=== PATIENT | male | born 1940 | race Caucasian/White ===

== ENCOUNTER 2017-12-22 10:42 | Inpatient (IN) ==
[~2017-12-22 10:42] MED LIST: Bupivacaine/Epinephrine 0.5% Inj 50 ML Vial ONE; Gelatin Size 100 Topical Foam ONE; Thrombin Topical Soln 5,000 UNIT Vial TOPICAL ONE; ceFAZolin 2 GM Premix Inj 0 GM/0 ML PIGGYBACK IV.SIG ONE
[2017-12-22] MEDS ORDERED: Phenylephrine/NS 1000 MCG/10ML Syringe IV.PUSH ONE (12:00)
[2017-12-22] MEDS ORDERED: Chlorhexidine Gluconate 2% 1 Pack (2 Cloths) TOPICAL SCH (12:00)
[2017-12-22] MEDS ORDERED: Lidocaine PF 1% Inj 5 ML Syringe INFILTRATN ONE (12:00)
[2017-12-22] MEDS ORDERED: Metoprolol Tartrate 25 MG Tablet PO SCH (12:15)
--- NOTE | 2017-12-22 12:31 | XR ---
EXAM DATE: 12/22/2017 12:21 PM EDT AGE/SEX: 77 years / Male INDICATIONS: Evaluate for pneumonia, pneumothorax and communicable diseases. Pre-op back surgery CLINICAL DATA: This is the patient's initial encounter. Patient reports that signs and symptoms have been present for 1 day and indicates a pain score of 0/10. MEDICAL/SURGICAL HISTORY: . Afib None. COMPARISON: No prior exams available for comparison. FINDINGS: A single AP view of the chest demonstrates the lungs to be symmetrically aerated without evidence of mass, infiltrate or effusion. Focal eventration of the left hemidiaphragm. Heart size is normal. Oss eous structures are intact with significant widening of the left AC joint. CONCLUSION: 1. No acute cardiopulmonary process. 2. Widening of the left AC joint. Findings are nonspecific but can be related to prior injury or chr onic joint stress Electronically signed by: Barry Schaffer MD 12/22/2017 12:30 PM EDT
[2017-12-22 13:00] LABS: Prothrombin Time 10.6 sec (9.8-11.6)
[2017-12-22] MEDS ORDERED: Sodium Chlor 0.9% Inj 500 ML IV.SIG SCH (13:00)
[2017-12-22] MEDS ORDERED: Propofol Inj 500 MG/50 ML Vial ONE (14:27)
[2017-12-22] MEDS ORDERED: Artificial Tears Opth Oint 3.5 GM Tube ONE (14:27)
[2017-12-22] MEDS ORDERED: Bisacodyl 10 MG Supp RECTAL PRN (15:30)
[2017-12-22] MEDS ORDERED: HYDROmorphone PCA Inj 6 MG/30 ML PCA.VIAL PCA PRN (15:35)
[2017-12-22] MEDS ORDERED: Naloxone Inj 0.4 MG/ML Vial IV.PUSH PRN (15:35)
[2017-12-22] MEDS ORDERED: ceFAZolin 2 GM Premix Inj 2 GM/50 ML PIGGYBACK IV.SIG SCH (16:00)
--- NOTE | 2017-12-22 17:13 | ECG ---
Date Performed: 12/22/2017 Time Performed: 11:49:07 PTAGE: 77 years EKG: Sinus rhythm LOW QRS VOLTAGE IN PRECORDIAL LEADS INCOMPLETE RIGHT BUNDLE BRANCH BLOCK LEFT ANTERIOR FASCICULAR BL OCK ABNORMAL ECG PREVIOUS TRACING : 02/25/2010 12.47 Since the previous tracing, no significant change noted DOCTOR: Mike Esteves Interpretating Date/Time 12/22/2017 17:12:35
--- NOTE | 2017-12-22 17:58 | P.OP ---
Date of procedure: 12/22/17 Procedure: L4-L5 laminectomy, interbody arthrodhesis using PEEK cage and autologous bone graft, L4-L5 instrumental fixation using transpedicular screws and rods, L4-L5 posterolateral fusion using autologous bone graft and demineralized bone matrix. Microsurgical dissection Anesthesia: ERMELINDA Surgeon: Doug Barclay MD Script Worker: Aby Gardiner Estimated blood loss (mL): 200 Pathology: none sent Operation and Findings: INDICATIONS FOR THE SURGICAL PROCEDURE Mr Petersen is a 77 year-old male who presented with intractable mechanical back pain and david evidence of lower extremity radiculopathy. He failed maximum nonsurgical management including multiple modalities of conservative treatment as well as pain management interventions by an interventional pain specialist. A surgical decompression and arthrodhesis were indicated as a last resort. The [id number] details of the procedure, indications, alternatives, risks and potential complications were fully discussed with the patient. The patient fully understood. All the questions were answered. No guarantees were given. The patient voiced requesting the procedure and provided informed consents. The patient was offered the alternative of delaying the procedure and continuing with nonsurgical management. DETAILS OF THE SURGICAL PROCEDURE Prior to the procedure, the surgical incision was marked in the preoperative surgical holding room, and the procedure, risks, and potential complications revisited with the patient. Placement of electrodes for intraoperative neurophysiological monitoring was completed. The patient was taken to the operative room, and following induction of general anesthesia, endotracheal intubation was performed. A Almonte catheter, bilateral QUINTON hose and sequential compression devices were placed and kept throughout the procedure. The patient was positioned prone, over a Brett table over a bolsters. All pressure in the preoperative surgical holding room points were carefully padded with eggcrate and gel mattress. The eyes were tapped shut after ointment was applied by the anesthesiologist to prevent corneal abrasion. A Jean-Pierre hugger was placed over the expossed lower body to maintain control of the core body temperature. The electrophysiological team placed the needles and electrodes in their proper location and baseline SSEP's and EMG potentials were registered. The entrance to each pedicles was marked using a C arm. The lumbar region was prepped and draped in the usual sterile fashion. The surgical procedure was performed in several steps as follow: SURGICAL APPROACH Once the patient was positioned, a localizing cross-table lateral x-ray was performed with a C-arm. Two paramedian small incisions were outlined on the skin approximately 3cm from the midline. The skin incisions were made with a # 10 blade. Small bleeders were controlled with the cautery. The dissection was then carried out into deper planes and through the thoracolumbar fascia with a Bovie. The intermuscular septum was identified and the myscles were blunted dissected along the septum. The facets and transverse process of L4 and L5 were exposed and the proper anatomical landmarks were identified. A microsurgical self-retaining retractor was placed on the incision, and a localizing lateralizing cross-table x-ray was performed with an instrument underneath a lamina of the lumbar spine. INSTRUMENTAL FIXATION At this point in the procedure, placement of bilateral transpedicular screws was necessary for stabilization of the spine. Initially, the entry point for the screw was selected anatomically at the junction of the facet, with the transverse process, and the pars interarticularis at L4 and L5. This was started with a Giamshetti needle followed by the use of a horner wire. A tap was used to create the threads for the screws. Finally bilateral transpedicular screws were carefully placed bilaterally at L4, and L5 under fluoroscopic visualization. An appropriate purchase was achieved with all screws. The position of each screw was assessed anatomically with an AP, lateral , oblique Xrays. An intraoperative scan view of the spine was then performed using the iso-centric c-arm. Each screw was then assessed electrophysiologically stimulating each screw with a nerve stimulator. SURGICAL DECOMPRESSION There was significant mass effect with compression of the neural structures. In order to relieve neural compression, it was necessary to perform a decompressive laminectomy, with decompression of the spinal canal and bilateral lateral recesses. Note that the scope of such decompression was significantly more extensive than the minimal exposure necessary to perform an interbody fusion, as there was extreme facet arthropathy with near complete collapse of the disk spaces and severe stenosis cause by the hyperthrophic joint facets. At this point of the procedure the operative microscope was draped in the usual sterile fashion and brought to the field. The rest of the surgical procedure was performed using microdissection technique with the exception of the closure. Under the operating microscope, a right decompressive laminectomy was carried out at L4-L5 as follow: The laminae, base of the spinous processes and facets were carefully drilled exposing the ligamentum flavum. The facets were abnormal with severe spondylolisthesis and gross mechanical instability. A large disk protusion was compressing the neural structures and exiting nerve roots. A near complete facetectomy was necessary resulting in further mechanical instability. The ligamentum flavum appeared hypertrophic, resulting on mass effect on the dorsal surface of the neural structures. The superior free border of the ligamentum flavum was elevated with a ligament dissector and the ligamentum flavum was removed with a 3 and 4 mm Kerrison forceps. The ligament was very adherent to the dural sac and during the dissection, and extreme care was taken during the dissection. The exiting nerve roots were identified, and a wide foraminotomy was performed with a Kerrison in their trajectory towards the neural foramen. Epidural veins located laterally to the dural sac were coagulated with the bipolar cautery, and then incised using microscissors. Gentle medial retraction of the dural sac allowed me to expose the disc space for the discectomy. Upon completion of the discectomy, an excellent decompression of the neural structures was achieved. Increased motion was noted thorough the procedure, which was consistent with mechanical instability. INTERBODY ARTHRODHESIS In order to correct the narrowing of the disk space and maintain distraction of the space, and to achieve a solid interbody fusion, it was necessary the insertion of an interbody device into the disk space. Otherwise, the disk space would collapse, compromising the result of the surgical procedure. At this point of the procedure, the annulus fibrosus of the disk was carefully coagulated with a bipolar cautery and incised using an 11 bladed knife. Then, a microdiscectomy was carried out in a standard fashion using a combination of straight and up-biting pituitary forceps. A reverse angle curette was applied underneath the posterior longitudinal ligament, and used to push the disk fragments into the disk space, so they can be safely removed with a pituitary forceps. Once the discectomy was completed, it was necessary to decorticate the endplates, in order to eliminate the cartilaginous endplate and to expose healthy bone appropriate to perform the interbody fusion. The endplates at L4- L5 were then thoroughly decorticated using increasing size bone tomasz and ring curets, eliminating the cartilaginous fragments from both, the superior and inferior endplates. A disk space distractor was applied to the pedicle screws and gentle distraction was applied. This maneuver was assisted by the use of a disk distractor. Increased motility was noted at the disk, which was consistent with instability due to facet arthropathy. Once a thorough preparation of the disk space was achieved, the disk space was irrigated with antibiotic solution, and the interbody fusion was performed by carefully impacting a PPEK cage filled with autologous iliac crest bone graft. A solid position of the cage with good purchase was achieved. The position of the cage was assessed anatomically with a probe and radiologically with the C-arm. POSTEROLATERAL FUSION The posterolateral fusion is a critical component to the procedure, to prevent future fatigue and failure of the instrumental fixation. Initially, the transverse processes of the vertebral bodies, lateral surface of the facets and the lateral gutters of the spine were carefully cleaned, eliminating all soft tissue and muscle attachments. The area was then irrigated with a large amount of antibiotic solution. Subsequently, the transverse processes, lateral surface of the facets, and lateral gutters of the spine were thoroughly decorticated using the TPS drill with a 5mm cutting sriram, exposing cancellous bone, in preparation for the posterolateral fusion. The incision was again irrigated with antibiotic solution. Then, the posterolateral fusion was then performed by carefully packing the lateral gutters of the spine at L4-L5 with autologous bone combined with demineralized bone matrix. I packed as much bone as possible. COMPLETION OF THE INSTRUMENTATION AND CLOSURE The rods were brought to the field, applied to all the screws, and the screw caps were sequentially applied. Compression was performed between the pedicle screws, and final tightening of the screws was completed using a torque wrench. The incision was again thoroughly irrigated with several liters of antibiotic solution, and hemostasis secured with the bipolar cautery. A Valsalva Maneuver performed by the anesthesiologist failed to show any evidence of cerebrospinal fluid leak or bleeding. A 7 mm Brett-Ribera drain was left in the epidural space and externalized through a separate stab incision. The incision was then closed in planes. 0 Vicryl was used in an interrupted fashion to close the thoracolumbar fascia and the superficial fascia. The subcutaneous tissue was then approximated using 3-0 Vicryl in an interrupted fashion. Special care was taken to avoid space. The skin was then closed with 4-0 Vicryl in a running, subcuticular fashion. Dermabond was applied to the skin. Each plane of closure was irrigated with antibiotic solution. At the end of the procedure the sponge, needle and instrument counts were all correct. Estimated blood loss was 200 cc. No blood transfusion was given. The entire procedure was performed using continuous electrophysiological monitoring of the somatosensorial evoked potentials and EMG. The patient received prophylactic antibiotics. The patient was then extubated and transferred to the recovery room in stable condition.
[2017-12-22] MEDS ORDERED: fentaNYL Citrate Inj 100 MCG/2 ML Ampul ONE (18:25)
[2017-12-22] MEDS: Sod Chloride 0.9% Inj 1,000 ML IV.CONT SCH (18:50)
[2017-12-22 19:12] LABS: Hematocrit 42.7 % (39.0-51.0); Hemoglobin 14.3 gm/dL (13.0-17.0); Mean Corpuscular HGB Conc 33.6 % (32.0-36.0); Mean Corpuscular Hemoglobin 29.5 pg (27.0-34.0); Mean Corpuscular Volume 87.7 fL (80.0-100.0); Mean Platelet Volume 9.3 fL (7.0-11.0); Platelet Count 174 th/mm3 (150-450); Red Blood Count 4.87 mil/mm3 (4.50-5.90); Red Cell Distribution Width 13.4 % (11.6-17.2)
[2017-12-22 19:24] LABS: Calcium 8.7 mg/dL (8.5-10.1); Carbon Dioxide 23.7 meq/L (21.0-32.0); Potassium 4.1 meq/L (3.5-5.1)
--- NOTE | 2017-12-22 19:32 | XR ---
EXAM DATE: 12/22/2017 6:20 PM EDT AGE/SEX: 77 years / Male INDICATIONS: Fusion L4,L5 with screws and rods placement. CLINICAL DATA: This is the patient's subsequent encounter. Patient reports that signs and symptoms h ave been present for 1 day and indicates a pain score of Nonresponsive. MEDICAL/SURGICAL HISTORY: Non-responsive. Non-responsive. COMPARISON: No prior exams available for comparison. FINDINGS: Surgical changes of discectomy and fusion procedure with posterior and interbody instrumentation seen at L4/L5. Alignment is near-anatomic. There is moderate L4/L5 disc space narrowing CONCLUSION: No acute abnormality/complication demonstrated status post discectomy and fusion at L4/L5. Electronically signed by: Eliseo Bassett MD 12/22/2017 7:30 PM EDT
[2017-12-22] MEDS: Senna/Docusate Sodium 8.6/50 MG Tablet PO SCH (22:24)
[2017-12-22] MEDS: Dorzolamide 2% Opth Drops 10 ML Bottle EACH EYE SCH (22:24)
[2017-12-22] MEDS: Brimonidine 0.2% Opth Drops 5 ML Bottle EACH EYE SCH (22:24)
[2017-12-23] MEDS ORDERED: Vancomycin Inj 1 GM/200 ML PIGGYBACK IV.SIG SCH (03:00)
[2017-12-23] MEDS: prednisoLONE Acetate 1% Opth Susp 5 ML Bottle EACH EYE SCH ×3 (09:44→19:35)
[2017-12-23] MEDS: Brimonidine 0.2% Opth Drops 5 ML Bottle EACH EYE SCH (09:45)
[2017-12-23] MEDS: Dorzolamide 2% Opth Drops 10 ML Bottle EACH EYE SCH (09:45)
[2017-12-23] MEDS: Senna/Docusate Sodium 8.6/50 MG Tablet PO SCH (09:47)
[2017-12-23] MEDS: Sod Chloride 0.9% Inj 1,000 ML IV.CONT SCH ×2 (09:49→19:39)
--- NOTE | 2017-12-23 11:57 | P.CONIM ---
History of Present Illness Consult date: 12/23/17 Requesting Physician: Doug Barclay Reason for Consult: Medical management Primary Care Provider: Neha Pratt History of Present Illness: Mr. Petersen is a 77 y/o male with CAD, hx of NH, hx of A. fib s/p ablation with Dr. Lerma, Hyperlipidemia, GERD, chronic back pain. [place] [facility] and underwent L4-L5 laminectomy and fusion with hardware placement with Dr. Barclay. The [facility] Hospitalist team was consulted to help with medical management. The pt is seen on POD #1 and is doing well. He is sitting in the chair with his brace on and reports that his pain is well controlled. His vitals are stable. Pt plans to go home with [facility] at the time of discharge. Pt denies any abd pain, chest pain, SOB, palpitations, dizziness, weakness, nausea/ vomiting. Review of Systems All other systems reviewed negative except as stated in HPI PMFSH - History History Provided By: Patient, Family Member - Medical History Medical History: Medical History (Last Updated 12/23/17 @ 11:22 by SERENA Lebron) Arthritis (Acute) Glaucoma (Acute) Personal history of poliomyelitis (Acute) Asthma (Chronic) GERD (gastroesophageal reflux disease) (Acute) Inguinal hernia (Acute) A-fib (Acute) CAD (coronary artery disease) COPD (chronic obstructive pulmonary disease) Inflammatory polyarthritis - Surgical History Surgical History: Surgical History (Last Updated 12/22/17 @ 22:40 by John Shin RN) Hx of cataract surgery (Acute) H/O umbilical hernia repair (Acute) H/O foot surgery (Acute) Hx of tonsillectomy (Acute) Status post left shoulder hemiarthroplasty (Acute) H/O cardiac radiofrequency ablation (Acute) - Family History Family History: Family History (Last Updated 12/23/17 @ 11:42 by SERENA Lebron) Other Family history non-contributory - Tobacco History Second Hand Smoke Exposure: No Tobacco Use In Past 30 Days: No Smoking Status: Never smoker Tobacco Type: Cigarettes - Alcohol History How Often Do You Have a Drink Containing Alcohol: Monthly or less - Substance Use History Substance History: No History of Abuse Medications and Allergies Allergies Allergy/AdvReac Type Severity Reaction Status Date / Time aspirin Allergy Severe Anaphylaxis Verified 12/22/17 12:10 penicillin G Allergy Severe Anaphylaxis Verified 12/22/17 12:10 Home Medications Medication Instructions Recorded Confirmed Type albuterol sulfate [Ventolin HFA] 2 puff INHALATION Q4-6H PRN 12/18/17 12/22/17 History brimonidine 1 drp OPHTHALMIC (EYE) BID 12/18/17 12/22/17 History clopidogrel [Plavix] 75 mg PO DAILY 12/18/17 12/18/17 History dorzolamide 1 drp OPHTHALMIC (EYE) BID 12/18/17 12/22/17 History fluticasone-vilanterol [Breo 1 inh INHALATION DAILY 12/18/17 12/22/17 History Ellipta] latanoprost 1 drp OPHTHALMIC (EYE) QPM 12/18/17 12/22/17 History prednisolone acetate 1 drp OPHTHALMIC (EYE) TID 12/18/17 12/22/17 History atorvastatin 20 mg PO DAILY 12/23/17 12/23/17 History Active Medications: Active Medications Al Hydroxide/Mg Hydroxide (Milk Of Tekorajose raul Maynard) 30 ml PO Q12H PRN PRN Reason: Mild Constipation Albuterol (Ventolin Hfa Inh) 2 puff INH Q4H PRN PRN Reason: SHORTNESS OF BREATH Bisacodyl (Dulcolax Supp) 10 mg RECTAL DAILY PRN PRN Reason: SEVERE CONSITIPATION Brimonidine Tartrate (Alphagan 0.2% Opth Drops) 1 drops EACH EYE BID [facility] Last Admin: 12/23/17 09:45 Dose: 1 drops Chlorhexidine Gluconate (Chlorhexidine 2% Cloth) 3 pack TOPICAL SALES OPERATIONS COORDINATOR [facility] Stop: 12/25/17 12:00 Last Admin: 12/22/17 12:00 Dose: 3 pack Clopidogrel Bisulfate (Plavix) 75 mg PO DAILY [facility] Last Admin: 12/23/17 09:47 Dose: 75 mg Dorzolamide HCl (Trusopt 2% Opth Drops) 1 drop EACH EYE BID [facility] Last Admin: 12/23/17 09:45 Dose: 1 drop Fluticasone/Vilanterol (Breo Ellipta 100/25 Mcg Inh) 1 puff INH DAILY [facility] Last Admin: 12/23/17 09:48 Dose: 1 puff Lactated Ringer's (Lr 1000 Ml Inj) 1,000 mls @ 30 mls/hr IV.SIG .Q24H [facility] Stop: 12/25/17 12:06 Last Infusion: 12/22/17 15:00 Dose: Infused Sodium Chloride (Ns Inj) 500 mls @ 30 mls/hr IV.SIG .Q10H [facility] Stop: 12/25/17 12:06 Sodium Chloride (Ns Inj) 1,000 mls @ 100 mls/hr IV.CONT .Q10H [facility] Last Admin: 12/23/17 09:49 Dose: 100 mls/hr Hydromorphone/Sodium Chloride (Dilaudid Real Estate Associate Attorney Inj) 6 mg in 30 mls @ 0 mls/hr SERVICE DESK ANALYST UNSCH PRN PRN Reason: per SERVICE DESK ANALYST parameters Last Admin: 12/22/17 18:50 Dose: 0 mls/hr Vancomycin HCl 1,000 mg/ (Sodium Chloride) 250 mls @ 200 mls/hr IV.SIG Q12H [facility] Stop: 12/23/17 16:14 Lactulose (Lactulose Liq) 30 ml PO DAILY PRN PRN Reason: SEVERE CONSITIPATION Latanoprost (Xalatan 0.005% Opth Drops) 1 drop EACH EYE QPM [facility] Metoprolol Tartrate (Lopressor) 25 mg PO SALES OPERATIONS COORDINATOR [facility] Stop: 12/25/17 12:06 Miscellaneous Information ([facility]) 1 each OTHER UNSCH PRN PRN Reason: SEE LABEL COMMENTS Stop: 12/23/17 18:19 Naloxone HCl (Narcan Inj) 0.4 mg IV.PUSH PRN PRN PRN Reason: SEE LABEL COMMENTS Povidone Iodine (Betadine 5% Antisepsis Kit) 1 applicatio EACH NARE SALES OPERATIONS COORDINATOR [facility] Stop: 12/25/17 12:06 Prednisolone Acetate (Pred Forte 1% Opth Susp) 1 drop EACH EYE TID [facility] Last Admin: 12/23/17 09:44 Dose: 1 drop Senna/Docusate Sodium (Florinda-Colace) 1 tab PO BID [facility] Last Admin: 12/23/17 09:47 Dose: 1 tab Sennosides (Senokot) 17.2 mg PO Q12H PRN PRN Reason: Moderate Constipation Exam Vital signs: Vital Signs 12/22/17 12:24 12/22/17 18:19 07/10/18 18:30 Temperature 97.2 F L 97.4 F L Pulse Rate 62 93 H 86 Respiratory Rate 16 12 13 Blood Pressure 133/80 122/65 132/67 Pulse Oximetry 99 12/22/17 18:45 12/22/17 18:57 12/22/17 19:00 Temperature 97.4 F L Pulse Rate 84 93 H 82 Respiratory Rate 16 12 12 Blood Pressure 147/72 H 122/65 161/68 H Pulse Oximetry 98 12/22/17 19:15 12/22/17 19:30 12/22/17 19:40 Temperature Pulse Rate 79 80 82 Respiratory Rate 12 11 L 15 Blood Pressure 150/76 H 130/69 137/70 Pulse Oximetry 12/22/17 19:45 12/22/17 20:00 12/23/17 00:00 Temperature 97.6 F 97.8 F 97.7 F Pulse Rate 81 86 Respiratory Rate 17 16 Blood Pressure 142/76 H 108/57 L Pulse Oximetry 95 95 12/23/17 02:30 12/23/17 04:40 12/23/17 08:00 Temperature 98.1 F 98.1 F Pulse Rate 77 68 Respiratory Rate 15 16 17 Blood Pressure 125/63 117/60 Pulse Oximetry 95 95 Intake & Output 12/22/17 12/23/17 12/23/17 18:59 06:59 18:59 Intake Total 1999 / 1999 1480 / 1480 Output Total 500 / 500 1100 / 1100 Balance 1500 / 1500 380 / 380 Weight 81.6 kg Intake: IV 1000 / 1000 1000 / 1000 NS Inj 1,000 ML @ 100 mls/hr IV 1000 / 1000 .CONT .Q10H [facility] Rx#:[id number] LR 1000 mL Inj 1,000 ML @ 30 1000 / 1000 mls/hr IV.SIG .Q24H [facility] Rx#: [id number] Oral 480 / 480 Anesthesia Amount 1000 / 1000 Output: Urine 900 / 900 Estimated Blood Loss 200 / 200 Urine Amount (Catheter) 300 / 300 200 / 200 Indwelling Urethral Catheter 200 / 200 URE 300 / 300 Wound Drainage 0 / 0 # 1 Back 0 / 0 Other: # Bowel Movements 0 Weight On Admission 81.6 kg Narrative: GENERAL: SKIN: Warm and dry. HEENT: Atraumatic. Normocephalic. No scleral icterus. No injection or drainage. No nasal bleeding or discharge. Mucous membranes pink and moist. NECK: Trachea midline. No JVD. CARDIOVASCULAR: Regular rate and rhythm. RESPIRATORY: No accessory muscle use. Clear to auscultation. Breath sounds equal bilaterally. GASTROINTESTINAL: Abdomen soft, non-tender, nondistended. Hepatic and splenic margins not palpable. MUSCULOSKELETAL: Extremities without clubbing, cyanosis, or edema. No obvious deformities. NEUROLOGICAL: Awake and alert. No obvious cranial nerve deficits. Motor grossly within normal limits. Five out of 5 muscle strength in the arms and legs. Normal speech. Results - Labs CBC & Chem 7: 12/24/17 04:25 12/24/17 04:25 Labs: Laboratory Results - last 24 hr 12/22/17 12/22/17 12/22/17 12:09 12:09 12:09 WBC RBC Hgb Hct MCV MCH MCHC RDW Plt Count MPV PT 10.6 INR 1.0 APTT 24.7 Sodium Potassium Chloride Carbon Dioxide Anion Gap BUN Creatinine Estimated GFR Random Glucose Calcium Nasal Screen MRSA (PCR) Not detected Blood Type Blood Type Recheck Antibody Screen 12/22/17 12/22/17 12/22/17 12:09 18:58 18:58 WBC 10.0 RBC 4.87 Hgb 14.3 Hct 42.7 MCV 87.7 MCH 29.5 MCHC 33.6 RDW 13.4 Plt Count 174 MPV 9.3 PT INR APTT Sodium 139 Potassium 4.1 Chloride 106 Carbon Dioxide 23.7 Anion Gap 9 BUN 18 Creatinine 0.92 Estimated GFR 80 L Random Glucose 100 Calcium 8.7 Nasal Screen MRSA (PCR) Blood Type A Positive Blood Type Recheck Required Antibody Screen Negative - Imaging Impressions Chest X-Ray 12/22/17 00:00 CONCLUSION: 1. No acute cardiopulmonary process. 2. Widening of the left AC joint. Findings are nonspecific but can be related to prior injury or chronic joint stress Lumbar Spine X-Ray 12/22/17 00:00 CONCLUSION: No acute abnormality/complication demonstrated status post discectomy and fusion at L4/L5. Assessment and Plan - Assessment (1) S/P laminectomy Code(s): Z98.890 - Other specified postprocedural states Status: Acute Plan: s/p L4-L5 laminectomy and fusion Chronic back pain with lower extremity radiculopathy - Pt is s/p L4-L5 laminectomy and fusion with hardware placement on 12/22/[address] Ning - Post-op pain control per Neurosurgery - Constipation precautions - PT daily - IS - Supportive care Asthma - Continue Breo Hx of CAD Hx of A. fib s/p ablation - Cont. Plavix - Pt had been on BB in the past but could not tolerate it, specifics unclear - Cont. statin The exam, history, and the medical decision-making described in the above note were completed with the assistance of the mid-level provider. I reviewed and agree with the findings presented. I attest that I had a [id number] encounter with the patient on the same day, and personally performed and documented my assessment and findings in the medical record.
--- NOTE | 2017-12-23 14:34 | P.PNNS ---
Subjective Interval history: 12/23: POD 1 s/p L4-L5 laminectomy, interbody arthrodesis using PEEK cage and autologous bone graft, L4-L5 instrumental fixation using transpedicular screws and rods, L4-L5 posterolateral fusion using autologous bone graft and demineralized bone matrix, microsurgical dissection. reports to be doing well, surgical pain controlled with COMIC BOOK ARTIST, ambulated down the halls today. reports no new radicular symptoms, changes in motor function. Physical Exam Vital signs: Vital Signs 12/22/17 18:19 12/22/17 18:30 12/22/17 18:45 Temperature 97.4 F L Pulse Rate 93 H 86 84 Respiratory Rate 12 13 16 Blood Pressure 122/65 132/67 147/72 H Pulse Oximetry 99 12/22/17 18:57 12/22/17 19:00 12/22/17 19:15 Temperature 97.4 F L Pulse Rate 93 H 82 79 Respiratory Rate 12 12 12 Blood Pressure 122/65 161/68 H 150/76 H Pulse Oximetry 98 12/22/17 19:30 12/22/17 19:40 12/22/17 19:45 Temperature 97.6 F Pulse Rate 80 82 Respiratory Rate 11 L 15 Blood Pressure 130/69 137/70 Pulse Oximetry 12/22/17 20:00 12/23/17 00:00 12/23/17 02:30 Temperature 97.8 F 97.7 F Pulse Rate 81 86 Respiratory Rate 17 16 15 Blood Pressure 142/76 H 108/57 L Pulse Oximetry 95 95 12/23/17 04:40 12/23/17 08:00 12/23/17 12:00 Temperature 98.1 F 98.1 F 98 F Pulse Rate 77 68 78 Respiratory Rate 16 17 19 Blood Pressure 125/63 117/60 112/57 L Pulse Oximetry 95 95 95 Intake & Output 12/22/17 12/23/17 12/23/17 18:59 06:59 18:59 Intake Total 1999 / 1999 1480 / 1480 Output Total 500 / 500 1100 / 1100 Balance 1500 / 1500 380 / 380 Weight 81.6 kg Intake: IV 1000 / 1000 1000 / 1000 NS Inj 1,000 ML @ 100 mls/hr IV 1000 / 1000 .CONT .Q10H [facility] Rx#:[id number] LR 1000 mL Inj 1,000 ML @ 30 1000 / 1000 mls/hr IV.SIG .Q24H COUNTS INCLUDE 234 BEDS AT THE [facility] Rx#: [id number] Oral 480 / 480 Anesthesia Amount 1000 / 1000 Output: Urine 900 / 900 Estimated Blood Loss 200 / 200 Urine Amount (Catheter) 300 / 300 200 / 200 Indwelling Urethral Catheter 200 / 200 URE 300 / 300 Wound Drainage 0 / 0 # 1 Back 0 / 0 Other: # Bowel Movements 0 Weight On Admission 81.6 kg - Constitutional no acute distress - Routine HEENT Exam Head: Present: normocephalic, atraumatic Eye: Present: EOMI - Routine Neck Exam Present: supple - Routine Extremities Exam Present: full ROM - Routine Neurological Exam Present: alert, oriented X3 - Routine Psychiatric Exam Present: normal affect - Urinary Catheter Management Indwelling Urethral Catheter Cath placed during this visit: yes Reason for continuing: Hourly intake/output Insertion date: 12/22/17 URE Cath placed during this visit: yes Reason for continuing: Hourly intake/output Insertion date: 12/22/17 Assessment and Plan - Assessment (1) S/P lumbar fusion Code(s): Z98.1 - Arthrodesis status Status: Acute - Plan cont COMIC BOOK ARTIST for pain control today, mobilize OOB with lumbar brace SCDs and TEDs for dvt prophylaxis protonix for stress ulcer prophylaxis anticipate discharge in 1-2 days when pain controlled appreciate medical assistance
[2017-12-23] MEDS ORDERED: Vancomycin Inj 1,000 MG in Sodium Chlor 0.9% Inj 250 ML IV.SIG SCH (15:00)
--- NOTE | 2017-12-23 16:13 | P.DCO ---
- Physical Therapy Order: Improve ambulation - Home Health Nursing Order: Medical education, Signs/symptoms of disease process, Medication education-adverse effect, Wound care and dressing changes (please see wound discharge orders), Nursing assessment with vital signs - Certification I have seen patient Klaus Petersen on 12/23/17. My clinical findings support the need for the requested home health care services because: Deconditioned with increased weakness, High risk of falls I certify that my clinical findings support that this patient is homebound because: Post-op weakness, Unsteady gait/balance
[2017-12-23] MEDS: Latanoprost 0.005% Opth Drops 2.5 ML Bottle EACH EYE SCH (19:38)
[2017-12-24 05:11] LABS: Baso # (Auto) 0.1 th/mm3 (0.0-0.2); Baso % (Auto) 0.6 % (0.0-2.0); Eos # (Auto) 0.2 th/mm3 (0.0-0.4); Eos % (Auto) 1.5 % (0.0-4.0); Hematocrit 36.9 % (39.0-51.0); Hemoglobin 12.5 gm/dL (13.0-17.0); Lymph # (Auto) 3.5 th/mm3 (1.0-4.8); Lymph % (Auto) 26.9 % (9.0-44.0); Mean Corpuscular HGB Conc 33.9 % (32.0-36.0); Mean Corpuscular Hemoglobin 29.2 pg (27.0-34.0); Mean Corpuscular Volume 86.1 fL (80.0-100.0); Mean Platelet Volume 9.8 fL (7.0-11.0); Mono # (Auto) 1.4 th/mm3 (0.0-0.9); Mono % (Auto) 10.5 % (0.0-8.0); Neut # (Auto) 7.9 th/mm3 (1.8-7.7); Neut % (Auto) 60.5 % (16.0-70.0); Platelet Count 170 th/mm3 (150-450); Red Blood Count 4.29 mil/mm3 (4.50-5.90); Red Cell Distribution Width 13.4 % (11.6-17.2)
[2017-12-24 05:35] LABS: Calcium 8.5 mg/dL (8.5-10.1); Carbon Dioxide 25.8 meq/L (21.0-32.0); Potassium 3.4 meq/L (3.5-5.1)
[2017-12-24] MEDS: Dorzolamide 2% Opth Drops 10 ML Bottle EACH EYE SCH (08:27)
[2017-12-24] MEDS: prednisoLONE Acetate 1% Opth Susp 5 ML Bottle EACH EYE SCH ×3 (08:27→17:53)
[2017-12-24] MEDS: Senna/Docusate Sodium 8.6/50 MG Tablet PO SCH ×2 (08:28→22:50)
[2017-12-24] MEDS: Brimonidine 0.2% Opth Drops 5 ML Bottle EACH EYE SCH ×2 (08:29→22:50)
--- NOTE | 2017-12-24 14:46 | P.PNNS ---
Subjective Interval history: 12/24: POD 1,doing well, continues use of WEB SITE ADMINISTRATOR for pain, increased pain with movement Physical Exam Vital signs: Vital Signs 12/23/17 16:00 12/23/17 21:15 12/24/17 00:15 Temperature 97 F L 99.0 F 99.8 F H Pulse Rate 75 79 88 Respiratory Rate 18 17 17 Blood Pressure 131/75 123/62 153/70 H Pulse Oximetry 96 93 L 94 L 12/24/17 02:00 12/24/17 04:00 12/24/17 12:00 Temperature 99.6 F 98.7 F Pulse Rate 86 85 Respiratory Rate 15 17 16 Blood Pressure 133/73 153/68 H Pulse Oximetry 95 96 Intake & Output 12/23/17 12/24/17 12/24/17 18:59 06:59 18:59 Intake Total 1480 / 1480 1480 / 1480 Output Total 1300 / 1300 Balance 180 / 180 1480 / 1480 Intake: IV 1000 / 1000 NS Inj 1,000 ML @ 100 mls/hr IV 1000 / 1000 .CONT .Q10H [facility] Rx#:[id number] Oral 480 / 480 480 / 480 Anesthesia Amount 1000 / 1000 Output: Urine 900 / 900 Estimated Blood Loss 200 / 200 Urine Amount (Catheter) 200 / 200 Indwelling Urethral Catheter 200 / 200 Wound Drainage 0 / 0 # 1 Back 0 / 0 Other: # Voids 4 # Bowel Movements 0 0 Narrative: No acute distress, comfortable sitting chair LSO brace in place moves all major muscle groups in lower extremities well - Urinary Catheter Management Indwelling Urethral Catheter Cath placed during this visit: yes Reason for continuing: Hourly intake/output Insertion date: 12/22/17 URE Cath placed during this visit: yes Reason for continuing: Hourly intake/output Insertion date: 12/22/17 Assessment and Plan - Assessment (1) S/P lumbar fusion Code(s): Z98.1 - Arthrodesis status Status: Acute - Plan cont WEB SITE ADMINISTRATOR for pain control today, + oral pain meds prn mobilize OOB with lumbar brace SCDs and TEDs for dvt prophylaxis protonix for stress ulcer prophylaxis anticipate discharge in 1-2 days when pain controlled appreciate medical assistance
[2017-12-24] MEDS: Latanoprost 0.005% Opth Drops 2.5 ML Bottle EACH EYE SCH (17:53)
--- NOTE | 2017-12-24 20:43 | CT ---
EXAM DATE: 12/24/2017 8:18 PM EDT AGE/SEX: 77 years / Male INDICATIONS: Altered mental status. CLINICAL DATA: This is the patient's initial encounter. Patient reports that signs and symptoms have been present for 1 day and indicates a pain score of 0/10. MEDICAL/SURGICAL HISTORY: Asthma. Coronary artery disease. Fusion, lumbar. RADIATION DOSE: 56.35 CTDI (mGy) ; Combined studies COMPARISON: No prior exams available for comparison. TECHNIQUE: Axial images of the head were acquired without contrast and after intravenous administrat ion of 50 ml Omnipaque 350 (iohexol) nonionic water-soluble contrast as a single exam dose. Using automated exposure control and adjustment of the mA and/or kV according to patient size, radiation do se was kept as low as reasonably achievable to obtain optimal diagnostic quality images. DICOM forma t image data is available electronically for review and comparison. FINDINGS: Cerebrum: There is mild generalized atrophy and ventricles are normal given the degree of atrophy. M ild periventricular white matter change is present. No midline shift, mass lesion, hemorrhage or acu te infarction. No extraaxial fluid collections are seen. Posterior Fossa: The cerebellum and brainstem demonstrate no acute abnormality. The 4th ventricle is midline. The cerebellopontine angle is within normal limits. Extracranial: The visualized sinuses are clear. Skull: The calvaria is intact. No skull fracture. Post contrast: No abnormal enhancement is identified. CONCLUSION: 1. No acute intracranial abnormality is identified. 2. Chronic findings include generalized atrophy and mild periventricular white matter change. Electronically signed by: Eliseo Hammond MD 12/24/2017 8:42 PM EDT
[2017-12-25] MEDS: prednisoLONE Acetate 1% Opth Susp 5 ML Bottle EACH EYE SCH ×3 (08:03→14:09)
[2017-12-25] MEDS: Dorzolamide 2% Opth Drops 10 ML Bottle EACH EYE SCH ×2 (08:04→08:31)
[2017-12-25] MEDS: Latanoprost 0.005% Opth Drops 2.5 ML Bottle EACH EYE SCH (08:04)
[2017-12-25] MEDS: Sod Chloride 0.9% Inj 1,000 ML IV.CONT SCH (08:05)
[2017-12-25] MEDS: Senna/Docusate Sodium 8.6/50 MG Tablet PO SCH ×2 (08:29→08:33)
[2017-12-25] MEDS: Brimonidine 0.2% Opth Drops 5 ML Bottle EACH EYE SCH (08:32)
--- NOTE | 2017-12-25 14:28 | P.PNNS ---
Subjective Interval history: 12/25: doing well, reports mental status much better this morning. had a CT Brain last night which was negative. Physical Exam Vital signs: Vital Signs 12/24/17 19:10 12/24/17 23:22 12/25/17 04:59 Temperature 98.6 F 97.9 F 98.4 F Pulse Rate 92 H 78 78 Respiratory Rate 18 18 18 Blood Pressure 115/73 125/76 129/72 Pulse Oximetry 98 96 97 12/25/17 08:00 12/25/17 08:29 Temperature 97.9 F Pulse Rate 98 H Respiratory Rate 16 18 Blood Pressure 144/67 H Pulse Oximetry 94 L Intake & Output 12/24/17 12/25/17 12/25/17 18:59 06:59 18:59 Intake Total 240 / 240 Output Total 950 / 950 Balance -950 / -950 240 / 240 Weight 82 kg Intake: Oral 240 / 240 Output: Urine 950 / 950 Other: # Voids 3 # Bowel Movements 0 Narrative: No acute distress, comfortable sitting chair Alert and oriented x 3. speech is fluent. follows commands. facial motor symmetric Neck: soft, supple wound with clean and dry optifoam dressing in place moves all major muscle groups in lower extremities well - Urinary Catheter Management Indwelling Urethral Catheter Cath placed during this visit: yes Reason for continuing: Hourly intake/output Insertion date: 12/22/17 URE Cath placed during this visit: yes Reason for continuing: Hourly intake/output Insertion date: 12/22/17 Assessment and Plan - Assessment (1) S/P lumbar fusion Code(s): Z98.1 - Arthrodesis status Status: Acute - Plan doing well, neuro stable, improved. cont po pain meds prn for pain, mobilize OOB with lumbar brace SCDs and TEDs for dvt prophylaxis protonix for stress ulcer prophylaxis dc home with [facility] today follow up next week
--- NOTE | 2018-01-04 11:15 | P.DS ---
Date of admission: 12/22/17 10:42 Primary care physician: Neha Pratt Brief History from admission: Mr Petersen is a 77 year-old male who presented with intractable mechanical back pain and david evidence of lower extremity radiculopathy. He failed maximum nonsurgical management including multiple modalities of conservative treatment as well as pain management interventions by an interventional pain specialist. A surgical decompression and arthrodhesis were indicated as a last resort. DS: Diagnosis - Discharge Diagnosis (1) S/P lumbar fusion Status: Acute DS: Summary Hospital Course: Date of procedure: Procedure: Mr. Petersen underwent a L4-L5 laminectomy, interbody arthrodhesis using PEEK cage and autologous bone graft, L4-L5 instrumental fixation using transpedicular screws and rods, L4-L5 posterolateral fusion using autologous bone graft and demineralized bone matrix. Microsurgical dissection 12/22/17. He was discharged in stable conditions. - Time Spent with Patient Total time spent providing and/or coordinating discharge services: - Quality: VTE Deep Vein Thrombosis/Pulmonary Embolism Present on Admission: No Results Procedures completed during hospitalization: L4-L5 laminectomy, interbody arthrodhesis using PEEK cage and autologous bone graft, L4-L5 instrumental fixation using transpedicular screws and rods, L4-L5 posterolateral fusion using autologous bone graft and demineralized bone matrix. Microsurgical dissection - Impressions ITS Impressions Chest X-Ray 12/22/17 00:00 CONCLUSION: 1. No acute cardiopulmonary process. 2. Widening of the left AC joint. Findings are nonspecific but can be related to prior injury or chronic joint stress Lumbar Spine X-Ray 12/22/17 00:00 CONCLUSION: No acute abnormality/complication demonstrated status post discectomy and fusion at L4/L5. Head CT 12/24/17 00:00 CONCLUSION: 1. No acute intracranial abnormality is identified. 2. Chronic findings include generalized atrophy and mild periventricular white matter change. Discharge Plan - Discharge Disposition Patient Disposition: /Home Health Service - Discharge Order Discharge Orders: Discharge Order (Routine); Ordered 12/25/17 Ordered By: Johana Gorman - Physicians Team Attending Provider: Doug Barclay Other Providers: David Garcia MD - Rxs /Orders / Referrals /Forms Prescriptions: Continue albuterol sulfate [Ventolin HFA] 90 mcg/actuation Hfa Aerosol Inhaler 2 puff INHALATION Q4-6H PRN (Reason: Shortness Of Breath) atorvastatin 20 mg Tablet 20 mg PO DAILY brimonidine 0.2 % Drops 1 drp OPHTHALMIC (EYE) BID clopidogrel [Plavix] 75 mg Tablet 75 mg PO DAILY dorzolamide 2 % Drops 1 drp OPHTHALMIC (EYE) BID fluticasone-vilanterol [Breo Ellipta] 100-25 mcg/dose Blister With Device 1 inh INHALATION DAILY latanoprost 0.005 % Drops 1 drp OPHTHALMIC (EYE) QPM prednisolone acetate 1 % Drops,Suspension 1 drp OPHTHALMIC (EYE) TID Ambulatory Orders / Order Sets / DME: Adjustable Commode 3-in-1 (1 each) (Routine) Location: Determined by Patient Ordered By: Johana Painting/Hilario (1 each) (Routine) Location: Determined by Patient Ordered By: Johana Gorman Referrals: Neha Pratt [Other] - See Instructions - Post Discharge Care Plan Care Plan Goals: Your Health Problems: Goals to Promote Your Health: * To prevent worsening of your condition * To maintain your health at the optimal level Directions to Meet Your Goals: * Take your medications as prescribed * Follow your dietary instruction * Follow activity as directed * Keep your appointments as scheduled * Take your immunizations and boosters as scheduled * If your symptoms worsen call your PCP * If no PCP go to Urgent Care or Emergency Room Smoking is dangerous to your health. Avoid second hand smoke. You may reach the 24-hour crisis hotline for domestic abuse at .
== END 2017-12-25 15:50 | disposition home health service (06) ==
LOC: HSDI 10:42 → N06 19:55
PROVIDERS: ADMIT Neurological Surgery; ATTEND Neurological Surgery